=== PATIENT | female | born 1925 | race Caucasian/White ===

== ENCOUNTER 2016-10-15 14:00 | Emergency (ER) | payer MEDICARE, MEDICAID ==
[~2016-10-15] VITALS: Ht 152.4 cm; Wt 77.1 kg
[~2016-10-15 14:00] MED LIST: ACET-73 PO; ASPI-807 PO; CHOL10002 PO; DILT240C88 PO; DOCU-25 PO; ESOM40CA PO; HYDR-4076 PO; MULT-24 PO; POTA10TA10 PO; VALS80TA2 PO
[2016-10-15] MEDS ORDERED: ACETAMINOPHEN ES 500 MG TABLET PO ONE (14:30)
[2016-10-15] MEDS ORDERED: ACETAMINOPHEN ES 500 MG TABLET ONE (15:01)
[2016-10-15 16:01] VITALS: BP 108/68
== END 2016-10-15 16:01 | disposition home or self-care (01) ==
LOC: ER 14:04
DX: S52.502A Unspecified fracture of the lower end of left radius, initial encounter for closed fracture (principal); S52.602A Unspecified fracture of lower end of left ulna, initial encounter for closed fracture; I11.0 Hypertensive heart disease with heart failure; I50.9 Heart failure, unspecified; K21.9 Gastro-esophageal reflux disease without esophagitis; I27.2 Other secondary pulmonary hypertension; M19.90 Unspecified osteoarthritis, unspecified site; Z79.82 Long term (current) use of aspirin; Z87.19 Personal history of other diseases of the digestive system; Z86.73 Personal history of transient ischemic attack (TIA), and cerebral infarction without residual deficits; W18.39XA Other fall on same level, initial encounter; Y93.89 Activity, other specified; Y92.89 Other specified places as the place of occurrence of the external cause; Y99.9 Unspecified external cause status
CPT/HCPCS: 29125; 73090; 73120; 99284; A4606; Z7610

== ENCOUNTER 2016-10-17 09:40 | Outpatient (CLI) | payer MEDICARE, MEDICAID | END 2016-10-17 23:59 | disposition home health service (06) | LOC: WOU 09:40 | PROVIDERS: ATTEND Podiatrist Foot & Ankle Surgery | DX: I83.013 Varicose veins of right lower extremity with ulcer of ankle (principal); L97.311 Non-pressure chronic ulcer of right ankle limited to breakdown of skin; M20.41 Other hammer toe(s) (acquired), right foot; G30.9 Alzheimer's disease, unspecified; F02.80 Dementia in other diseases classified elsewhere, unspecified severity, without behavioral disturbance, psychotic disturbance, mood disturbance, and anxiety; Z96.641 Presence of right artificial hip joint; I11.0 Hypertensive heart disease with heart failure; I50.9 Heart failure, unspecified; Z79.899 Other long term (current) drug therapy; Z79.82 Long term (current) use of aspirin; I83.893 Varicose veins of bilateral lower extremities with other complications; S91.114A Laceration without foreign body of right lesser toe(s) without damage to nail, initial encounter; X58.XXXA Exposure to other specified factors, initial encounter; Y92.89 Other specified places as the place of occurrence of the external cause | CPT/HCPCS: 11042; A6209; A6253; A6402; A6452 ==

== ENCOUNTER 2016-10-21 10:15 | Outpatient (CLI) | payer MEDICARE, MEDICAID | END 2016-10-21 23:59 | disposition home or self-care (01) | LOC: RAD 10:15 | PROVIDERS: ATTEND Podiatrist Foot & Ankle Surgery | DX: M19.071 Primary osteoarthritis, right ankle and foot (principal); R60.0 Localized edema; M85.871 Other specified disorders of bone density and structure, right ankle and foot; L97.519 Non-pressure chronic ulcer of other part of right foot with unspecified severity | CPT/HCPCS: 73600-TC; 73630-TC ==

== ENCOUNTER 2016-10-21 11:00 | Outpatient (CLI) | payer MEDICARE, MEDICAID | END 2016-10-21 23:59 | disposition home health service (06) | LOC: WOU 11:00 | PROVIDERS: ATTEND Podiatrist Foot & Ankle Surgery | DX: I83.013 Varicose veins of right lower extremity with ulcer of ankle (principal); L97.311 Non-pressure chronic ulcer of right ankle limited to breakdown of skin; S91.114D Laceration without foreign body of right lesser toe(s) without damage to nail, subsequent encounter; X58.XXXD Exposure to other specified factors, subsequent encounter; I83.893 Varicose veins of bilateral lower extremities with other complications; Z86.73 Personal history of transient ischemic attack (TIA), and cerebral infarction without residual deficits; G30.9 Alzheimer's disease, unspecified; F02.80 Dementia in other diseases classified elsewhere, unspecified severity, without behavioral disturbance, psychotic disturbance, mood disturbance, and anxiety; I11.0 Hypertensive heart disease with heart failure; I50.9 Heart failure, unspecified; Z79.899 Other long term (current) drug therapy; Z79.82 Long term (current) use of aspirin; Z96.641 Presence of right artificial hip joint; M20.41 Other hammer toe(s) (acquired), right foot; M21.611 Bunion of right foot | CPT/HCPCS: 11042; A6209; A6402 ×2; A6452 ==

== ENCOUNTER 2016-10-28 09:06 | Outpatient (CLI) | payer MEDICARE, MEDICAID | END 2016-10-28 23:59 | disposition home health service (06) | LOC: WOU 09:06 | PROVIDERS: ATTEND Podiatrist Foot & Ankle Surgery | DX: I83.013 Varicose veins of right lower extremity with ulcer of ankle (principal); L97.311 Non-pressure chronic ulcer of right ankle limited to breakdown of skin; I83.893 Varicose veins of bilateral lower extremities with other complications; M20.41 Other hammer toe(s) (acquired), right foot; S91.114A Laceration without foreign body of right lesser toe(s) without damage to nail, initial encounter; L03.031 Cellulitis of right toe; X58.XXXA Exposure to other specified factors, initial encounter; Y92.89 Other specified places as the place of occurrence of the external cause; G30.9 Alzheimer's disease, unspecified; F02.80 Dementia in other diseases classified elsewhere, unspecified severity, without behavioral disturbance, psychotic disturbance, mood disturbance, and anxiety; Z86.73 Personal history of transient ischemic attack (TIA), and cerebral infarction without residual deficits; Z96.641 Presence of right artificial hip joint; Z91.81 History of falling; I10 Essential (primary) hypertension; M21.611 Bunion of right foot | CPT/HCPCS: 11042; 87070; 87075; 87077; A6402 ×2; A6452 ==

== ENCOUNTER 2016-11-04 13:15 | Outpatient (CLI) | payer MEDICARE, MEDICAID | END 2016-11-04 23:59 | disposition home health service (06) | LOC: WOU 13:15 | PROVIDERS: ATTEND Podiatrist Foot & Ankle Surgery | DX: I83.013 Varicose veins of right lower extremity with ulcer of ankle (principal); L97.311 Non-pressure chronic ulcer of right ankle limited to breakdown of skin; I83.893 Varicose veins of bilateral lower extremities with other complications; S91.114D Laceration without foreign body of right lesser toe(s) without damage to nail, subsequent encounter; L03.031 Cellulitis of right toe; X58.XXXD Exposure to other specified factors, subsequent encounter; G30.9 Alzheimer's disease, unspecified; F02.80 Dementia in other diseases classified elsewhere, unspecified severity, without behavioral disturbance, psychotic disturbance, mood disturbance, and anxiety; Z86.73 Personal history of transient ischemic attack (TIA), and cerebral infarction without residual deficits | CPT/HCPCS: 11042; A6402; A6452 ==

== ENCOUNTER 2016-11-18 11:08 | Outpatient (CLI) | payer MEDICARE, MEDICAID | END 2016-11-18 23:59 | disposition home health service (06) | LOC: WOU 11:08 | PROVIDERS: ATTEND Podiatrist Foot & Ankle Surgery | PROC: 0JBQ0ZZ Excision of Right Foot Subcutaneous Tissue and Fascia, Open Approach (ICD-10-PCS; principal; 2016-11-18) | DX: S91.114A Laceration without foreign body of right lesser toe(s) without damage to nail, initial encounter (principal); X58.XXXA Exposure to other specified factors, initial encounter; Y92.89 Other specified places as the place of occurrence of the external cause; I96 Gangrene, not elsewhere classified; M20.41 Other hammer toe(s) (acquired), right foot; M20.5X1 Other deformities of toe(s) (acquired), right foot; G30.9 Alzheimer's disease, unspecified; F02.80 Dementia in other diseases classified elsewhere, unspecified severity, without behavioral disturbance, psychotic disturbance, mood disturbance, and anxiety; Z86.73 Personal history of transient ischemic attack (TIA), and cerebral infarction without residual deficits; I83.892 Varicose veins of left lower extremity with other complications; Z96.641 Presence of right artificial hip joint; I11.0 Hypertensive heart disease with heart failure; I50.9 Heart failure, unspecified; Z79.899 Other long term (current) drug therapy | CPT/HCPCS: 11042; A6402; A6452 ==

== ENCOUNTER 2016-11-19 14:07 | Outpatient (CLI) | payer MEDICARE, MEDICAID ==
[2016-11-19 15:49] LABS: BASOPHILS % (AUTO) 0.1 % (0.0-2.0); DIFF TOTAL % 100 %; HEMATOCRIT 28 % (33-45); HEMOGLOBIN 8.9 g/dL (11.5-14.8); LYMPHOCYTES % (AUTO) 10.1 % (20.0-44.0); MEAN CORPUSCULAR HEMOGLOBIN 25 PG (26.0-33.0); MEAN CORPUSCULAR HGB CONC 32 g/dl (31.0-36.0); MEAN CORPUSCULAR VOLUME 78 fL (82-100); MONOCYTES # (AUTO) 1.2 /CMM (0.1-1.30); MONOCYTES % (AUTO) 11.5 % (2.0-12.0); NEUTROPHILS % (AUTO) 78.3 % (43.0-81.0); PLATELET COUNT (AUTO) 166 /CMM (150-450); RED BLOOD CELL COUNT(AUTO) 3.56 MIL/uL (4.0-5.2); WHITE BLOOD COUNT (AUTO) 10.3 K/uL (4.3-11.0)
[2016-11-19 15:58] LABS: KETONES,URINE NEGATIVE (NEGATIVE); LEUKOCYTE ESTERASE ,URINE TRACE (NEGATIVE)
[2016-11-19 16:00] LABS: ADD UA MICROSCOPIC YES
[2016-11-19 16:02] LABS: CALCIUM, SERUM 8.9 mg/dL (8.5-10.1); CREATININE 0.9 mg/dL (0.6-1.3); POTASSIUM 3.3 mmol/L (3.5-5.1)
[2016-11-19 16:09] LABS: ALBUMIN 3.3 g/dL (3.4-5.0); BILIRUBIN,TOTAL 0.5 mg/dL (0.2-1.0); TOTAL PROTEIN, SERUM 7.8 g/dL (6.4-8.2)
[2016-11-19 16:13] LABS: ADD URINE CULTURE YES; RBC,URINE 0-2 /HPF (0-2)
== END 2016-11-19 23:59 | disposition home or self-care (01) ==
LOC: LAB 14:07
PROVIDERS: ATTEND Internal Medicine Interventional Cardiology
DX: N39.0 Urinary tract infection, site not specified (principal); R53.83 Other fatigue
CPT/HCPCS: 36415; 80053-TC; 81000-TC; 85025-TC; 87086-TC

== ENCOUNTER 2016-12-01 14:13 | Inpatient (IN) | payer MEDICARE, MEDICAID ==
[2016-12-01] VITALS (7 sets, daily range): BP systolic 135–171; BP diastolic 62–103
[~2016-12-01] VITALS: Ht 152.4 cm; Wt 82.1 kg
--- NOTE | 2016-12-01 14:35 | NUR ---
MD MERCADO AT BEDSIDE FOR EVALUATION.
--- NOTE | 2016-12-01 14:36 | NUR ---
PATIENT WAS BIB DTRS TO ED DUE TO NAUSEA AND VOMITTING SINCE LAST NIGHT. PATIENT IS AAO3, APPEARS IN NO ACUTE DISTRESS, RESPIRATION EVEN AND UNLABORED, SKIN IS WARM TO TOUCH AND NON DIAPHORETIC. AFEBRILE. VSS. PATIENT NOTED PARRIS SPLINT. BLE ARE NOTED EDEMATOUS. PER DTRS, PT'S LASIX WAS HELD BY PMD LUCIA. WILL CONT TO MONITOR.
[2016-12-01] MEDS ORDERED: IV NS 0.9% 500 ML IV ONE (14:38)
--- NOTE | 2016-12-01 14:51 | NUR ---
iv access #20 blood sample collected sent to lab.
[2016-12-01 14:59] LABS: BASOPHILS % (AUTO) 0.2 % (0.0-2.0); HEMATOCRIT 25 % (33-45); HEMOGLOBIN 7.8 g/dL (11.5-14.8); LYMPHOCYTES # (AUTO) 1.1 /CMM (0.8-4.8); LYMPHOCYTES % (AUTO) 10.6 % (20.0-44.0); MEAN CORPUSCULAR HEMOGLOBIN 24 PG (26.0-33.0); MEAN CORPUSCULAR HGB CONC 32 g/dl (31.0-36.0); MEAN CORPUSCULAR VOLUME 76 fL (82-100); MONOCYTES # (AUTO) 0.7 /CMM (0.1-1.30); MONOCYTES % (AUTO) 7.4 % (2.0-12.0); NEUTROPHILS # (AUTO) 8.2 /CMM (1.8-8.9); NEUTROPHILS % (AUTO) 81.8 % (43.0-81.0); PLATELET COUNT (AUTO) 460 /CMM (150-450); RDW COEFFICIENT OF VARIATION 16.1 (11.5-15.0); RED BLOOD CELL COUNT(AUTO) 3.24 MIL/uL (4.0-5.2)
[2016-12-01] MEDS ORDERED: ONDANSETRON HCL/PF 4 MG/2 ML VIAL ONE (14:59)
[2016-12-01] MEDS ORDERED: IV NS 0.9% 500 ML BAG IV ONE (15:00)
[2016-12-01] MEDS ORDERED: ONDANSETRON HCL/PF 4 MG/2 ML VIAL IVP ONE (15:00)
[2016-12-01 15:10] LABS: CREATININE 0.6 mg/dL (0.6-1.3); POTASSIUM 3.9 mmol/L (3.5-5.1)
[2016-12-01 15:16] LABS: BILIRUBIN,DIRECT 0.1 mg/dL (0.0-0.2); BILIRUBIN,TOTAL 0.4 mg/dL (0.2-1.0); TOTAL PROTEIN, SERUM 7.2 g/dL (6.4-8.2)
[2016-12-01 15:18] LABS: INR 1.15 (0.87-1.13); PROTHROMBIN TIME 12.4 SECS (9.5-12.7); TROPONIN I 0.02 ng/mL (0.00-0.056)
[2016-12-01 15:23] LABS: BAND % (MANUAL) 1 % (0.0-5.0); LYMPHOCYTES % (MANUAL) 7 % (16-48); MONOCYTES % (MANUAL) 5 % (0-11.0); NEUTROPHILS % (MANUAL) 85 (42-76); REACTIVE LYMPHOCYTES 2 % (0-0)
[2016-12-01 15:24] LABS: ANISOCYTOSIS 1+; PLATELET ESTIMATE INCRE; ROULEAUX 1+
[2016-12-01 15:25] LABS: OVALOCYTES RARE
[2016-12-01 15:42] LABS: LACTIC ACID 0.7 mmol/L (0.4-2.0)
[2016-12-01] MEDS ORDERED: FURO-144 PO (15:49)
[2016-12-01 15:50] LABS: APPEARANCE,URINE CLEAR (CLEAR); BILIRUBIN,URINE NEGATIVE (NEGATIVE); BLOOD, URINE NEGATIVE Ery/uL (NEGATIVE); COLOR,URINE YELLOW (YELLOW); KETONES,URINE NEGATIVE (NEGATIVE); LEUKOCYTE ESTERASE ,URINE NEGATIVE (NEGATIVE); NITRITE, URINE POSITIVE (NEGATIVE); PROTEIN,URINE TRACE mg/dl (NEGATIVE); UGLUCOSE NEGATIVE (NEGATIVE); UROBILINOGEN,URINE 0.2 EU/dL (0.2)
[2016-12-01 15:57] LABS: ADD URINE CULTURE YES; BACTERIA,URINE 4+ /HPF (None Seen); RBC,URINE 0-2 /HPF (0-2); SQUAMOUS EPITHELIAL CELL,UR 0-2 /HPF (None Seen); WBC,URINE 0-2 /HPF (0-3)
--- NOTE | 2016-12-01 16:06 | NUR ---
Patient on bed. awake. vss
[2016-12-01] MEDS ORDERED: ONDANSETRON HCL/PF 4 MG/2 ML VIAL IVP PRN (16:30)
[2016-12-01] MEDS ORDERED: MAGNESIUM HYDROXIDE 30 ML UDC PO PRN ×2 (16:30→16:45)
[2016-12-01] MEDS ORDERED: HYDROCODONE/APAP 5/325MG 1 EACH TABLET PO PRN ×2 (16:30→16:45)
[2016-12-01] MEDS ORDERED: CEFTRIAXONE 1 G in IV D5W 50 ML IV SCH ×2 (16:30→17:00)
[2016-12-01] MEDS ORDERED: ZOLPIDEM TARTRATE 5 MG TABLET PO PRN ×2 (16:30→16:45)
[2016-12-01] MEDS ORDERED: ACETAMINOPHEN 325 MG TABLET PO PRN ×2 (16:30→16:45)
[2016-12-01] MEDS ORDERED: MAG HYDROX/AL HYDROX/SIMETH 30 ML UDC PO PRN ×2 (16:30→16:45)
[2016-12-01] MEDS ORDERED: Z GUARD REMEDY 2 OZ OINT TP PRN ×2 (16:30→16:45)
--- NOTE | 2016-12-01 16:30 | NUR ---
PATIENT TRANSPORTED TO 3W,. VSS
--- NOTE | 2016-12-01 16:30 | NUR ---
REPORT GIVEN TO NURSE DUGAN FOR WINSOME.
--- NOTE | 2016-12-01 16:32 | NUR ---
RITCHIE BOWLING VERBALIZED AWARE OF BLOOD TRANSFUSION ORDER
--- NOTE | 2016-12-01 16:56 | NUR ---
PT TRANSPORTED TO 308 IN STABLE CONDITION VIA ACLS PROTOCOL
[2016-12-01] MEDS: hydrALAZINE HCL 25 MG TABLET PO SCH ×2 (17:00→17:46)
[2016-12-01] MEDS ORDERED: FUROSEMIDE 40 MG TABLET PO SCH (17:00)
[2016-12-01] MEDS ORDERED: hydrALAZINE HCL 25 MG TABLET PO SCH (17:00)
[2016-12-01] MEDS: FUROSEMIDE 40 MG TABLET PO SCH ×2 (17:00→17:47)
--- NOTE | 2016-12-01 17:25 | NUR ---
RN OPEN NOTES / ADMISSION PATIENT ARRIVED TO THE UNIT. 2 DAUGHTERS AND SON IN LAW ARE WITH PATIENT. IV SITE IS POTENT AND INTACT. BLOOD PRESSURE IS 135/62 hr 80, OXYGEN 94% ON ROOM AIR.
[2016-12-01] MEDS ORDERED: IV NS 0.9% 250 ML IV ONE (17:27)
[2016-12-01] MEDS ORDERED: SECONDARY IV SET 1 EA INFUS.SET MC ONE (17:27)
[2016-12-01] MEDS ORDERED: IV SET PRIMARY PUMP SET 1 EA INFUS.SET MC ONE (17:27)
[2016-12-01] MEDS: DOCUSATE SODIUM 100 MG CAPSULE PO SCH (17:45)
[2016-12-01] MEDS: DILTIAZEM HCL CD 240 MG PO SCH ×2 (17:45→17:57)
[2016-12-01] MEDS: VALSARTAN 80 MG TABLET PO SCH ×2 (17:46→17:57)
--- NOTE | 2016-12-01 17:57 | NUR ---
RN NOTES PATIENT COUNT NOT TAKE HER 1700 AND 1800 MEDS DUE TO NAUSEA AND VOMITING. MEDS WASTED
[2016-12-01] MEDS ORDERED: VALSARTAN 80 MG TABLET PO SCH (18:00)
[2016-12-01] MEDS ORDERED: DILTIAZEM HCL CD 240 MG PO SCH (18:00)
[2016-12-01] MEDS ORDERED: DOCUSATE SODIUM 100 MG CAPSULE PO SCH (18:00)
--- NOTE | 2016-12-01 20:00 | NUR ---
ms/rn opening notes RECEIVED PATIENT IN BED. ALERT, ORIENTED X3. ABLE TO VERBALIZE NEEDS.NO S/S OF SOB OR DISTRESS.RECEIVED ENDORSEMENT FROM AM RN REGARDING WINSOME. FAMILY WAS AT BEDSIDE. INFORMED CONSENT SIGNED FOR BLOOD TRANSFUSION DUE TO HGB LEVEL AT 7.8. WILL MONITOR AND PROVIDE CARE.
[2016-12-01] MEDS ORDERED: BLOOD IV SET 1 EA INFUS.SET MC ONE (20:22)
[2016-12-01] MEDS ORDERED: ONDANSETRON HCL/PF 4 MG/2 ML VIAL IV PRN (22:00)
[2016-12-01] MEDS ORDERED: ENOXAPARIN SODIUM 30 MG/0.3 ML DISP.SYRIN SQ SCH (22:00)
[2016-12-01] MEDS ORDERED: PANTOPRAZOLE 40 MG VIAL IV SCH (22:00)
[2016-12-02] MEDS ORDERED: ENOXAPARIN SODIUM 30 MG/0.3 ML DISP.SYRIN ONE (01:25)
[2016-12-02] MEDS ORDERED: PANTOPRAZOLE 40 MG VIAL ONE (01:25)
[2016-12-02 02:00] VITALS: BP 160/100
[2016-12-02 02:56] LABS: BASOPHILS % (AUTO) 0.1 % (0.0-2.0); HEMATOCRIT 28 % (33-45); LYMPHOCYTES # (AUTO) 1.4 /CMM (0.8-4.8); LYMPHOCYTES % (AUTO) 10.4 % (20.0-44.0); MEAN CORPUSCULAR HEMOGLOBIN 25 PG (26.0-33.0); MEAN CORPUSCULAR HGB CONC 32 g/dl (31.0-36.0); MEAN CORPUSCULAR VOLUME 78 fL (82-100); MONOCYTES # (AUTO) 0.6 /CMM (0.1-1.30); MONOCYTES % (AUTO) 4.7 % (2.0-12.0); NEUTROPHILS # (AUTO) 11.4 /CMM (1.8-8.9); NEUTROPHILS % (AUTO) 84.8 % (43.0-81.0); PLATELET COUNT (AUTO) 493 /CMM (150-450); RDW COEFFICIENT OF VARIATION 17.3 (11.5-15.0); RED BLOOD CELL COUNT(AUTO) 3.61 MIL/uL (4.0-5.2); WHITE BLOOD COUNT (AUTO) 13.4 K/uL (4.3-11.0)
--- NOTE | 2016-12-02 03:37 | NUR ---
MS/RN NOTES HGB LEVEL AFTER I UNIT PRBC GIVEN, RECHECK WITH RESULT HGB AT 9.0L. ON ESBL CONTACT ISOLATION GIVEN PROTONIX AND LOVENOX MD ORDER.ABLE TO URINATE IN BEDSIDE COMMODE W/ NO BLEEDING. WILL CONTINUE TO MONITOR. VITAL SIGNS IN STABLE.
--- NOTE | 2016-12-02 06:16 | NUR ---
MS/RN CLOSING NOTES PATIENT IN HOB ELEVATED. ABLE TO SLEEP BUT EASILY AROUSES. PROVIDED CARE AT ALL TIMES. NO S/S OF SOB OR DISTRESS. ON OXYGEN 2 LITER DURING THE NIGHT FOR COMFORT MEASURES.PATIENT MONITORING FOR N/V AND NOTED SOME SPUTUM AFTER COUGH.BUT RESTING AT THIS TIME. WILL ENDORSE TO AM RN FOR WINSOME.
--- NOTE | 2016-12-02 07:15 | NUR ---
RN INITIAL NOTES RECEIVED PATIENT IN BED, AWAKE, A/O X3. ON OXYGEN AT 2L/MIN VIA NC, NO SOB NOTED. LFA CAST INTACT, NO C/O PAIN AT THIS TIME. WILL CONT TO MONITOR. CALL LIGHT WITHIN REACH. BED LOW AND LOCKED. SIDE RAILS UP X2.
[2016-12-02] MEDS ORDERED: PANTOPRAZOLE 40 MG TABLET.DR PO SCH ×2 (07:30)
[2016-12-02 08:00] VITALS: BP 165/93
[2016-12-02] MEDS: hydrALAZINE HCL 25 MG TABLET PO SCH ×2 (08:28→17:15)
[2016-12-02] MEDS: ONDANSETRON HCL/PF 4 MG/2 ML VIAL IVP PRN ×2 (08:38→16:42)
--- NOTE | 2016-12-02 08:48 | NUR ---
PATIENT C/O NAUSEA WHILE EATING HER BREAKFAST, GIVEN ZOFRAN 4MG IV PRN. WILL CONT TO MONITOR.
[2016-12-02] MEDS ORDERED: CHOLECALCIFEROL 1,000 UNIT TABLET (VIT D3) PO SCH ×2 (09:00)
[2016-12-02] MEDS ORDERED: POTASSIUM CHLORIDE 10 MEQ TABLET.SA PO SCH ×2 (09:00)
[2016-12-02] MEDS ORDERED: MULTIVITAMINS,THERAPEUTIC 1 UDTAB TABLET PO SCH ×2 (09:00)
[2016-12-02] MEDS ORDERED: ASPIRIN EC 81 MG TABLET.DR PO SCH ×2 (09:00)
--- NOTE | 2016-12-02 09:15 | NUR ---
RECEIVED CALL FROM DERICK CHARLES MD PATIENT IS UNDER HIS CARE AND HE WILL COME TO SEE THE PATIENT TODAY. INFORMED DR. RAINES.
--- NOTE | 2016-12-02 10:07 | NUR ---
PATIENT IS SEEN BY PT TODAY, PATIENT PARTICIPATED WELL. PER PT PATIENT AMBULATES WITH ASSIST 20 FEET WITH NO C/O PAIN.
[2016-12-02] MEDS ORDERED: PANT40TA2 PO (10:59)
--- NOTE | 2016-12-02 10:59 | NUR ---
PATIENT IS SEEN BY DR. VALENZUELA TODAY, PATIENT TO BE DISCHARGED HOME ORDERED.
[2016-12-02] MEDS ORDERED: HYDROGEL DRESSING 90 GM TUBE TP SCH (11:00)
--- NOTE | 2016-12-02 11:00 | NUR ---
PATIENT IS SEEN BY TREATMENT RN TODAY.
--- NOTE | 2016-12-02 11:00 | NUR ---
WOUND CARE CONSULT: PATIENT SEEN AND SKIN ASSESSMENT DONE. PATIENT ALERT, ORIENTED, AMBULATORY WITH ASSIST, INDEPENDENT WITH BED MOBILITY, CONTINENT, [address] 17. PRIVATE CAREGIVER AT THE BEDSIDE. SEE TODAY'S SKIN ASSESSMENT IN PCS ALONG WITH RECOMMENDATIONS DISCUSSED WITH NURSING STAFF. MD IN AGREEMENT WITH PLAN OF CARE. Addendum: 12/02/16 at 1102 by ASHWINI MCCULLOUGH WNDNU Amended: Links added.
[2016-12-02] MEDS ORDERED: FERR-58 PO (11:01)
--- NOTE | 2016-12-02 11:29 | NUR ---
PER DAUGHTER-JUSTIN, PATIENT RECEIVED PNA VACCINE 2014 AND FLU VACCINE LAST 2015. VACCINATIONS STATUS UPDATED.
--- NOTE | 2016-12-02 12:32 | NUR ---
HYDROGEL NOT AVAILABLE, CALLED PHARMACY 2X. WILL F/U.
--- NOTE | 2016-12-02 13:51 | NUR ---
HYDROGEL ADMINISTERED LATE, MEDICATION AVAILABLE NOT ON TIME.
[2016-12-02 16:00] VITALS: BP 157/76
--- NOTE | 2016-12-02 16:48 | NUR ---
PATIENT WITH EPISODE OF VOMITING, FOOD RESIDUE CREAM COLORED, C/O NAUSEA. GIVEN ZOFRAN 4MG IV PRN, WILL RE ASSESS.
[2016-12-02] MEDS: DOCUSATE SODIUM 100 MG CAPSULE PO SCH (17:15)
[2016-12-02] MEDS: DILTIAZEM HCL CD 240 MG PO SCH (17:15)
[2016-12-02 17:16] VITALS: BP 157/76
[2016-12-02] MEDS: VALSARTAN 80 MG TABLET PO SCH (17:16)
--- NOTE | 2016-12-02 18:31 | NUR ---
MS RN DISCHARGED PATIENT HAS BEEN CLEARED FOR DISCHARGE HOME BY . V/S REMAINS STABLE, NO C/O NAUSEA, NO VOMITING. ZOFRAN 4MG IV PRN EFFECTIVE. DRESSING CHANGED IN RIGHT 5TH TOE AND RIGHT LOWER LEG. IV IN RIGHT AC REMOVED, GAUZE APPLIED, NO BLEEDING NOTED. DISCHARGE INSTRUCTION GIVEN TO DAUGHTER-JUSTIN, VERBALIZED UNDERSTAND. BELONGINGS AND PRESCRIPTION SEND WITH THE PATIENT UPON DISCHARGE. PATIENT LEFT HOSP IN STABLE CONDITION VIA PRIVATE CAR ACCOMPANIED BY DAUGHTER-JUSTIN.
== END 2016-12-02 18:30 | disposition home or self-care (01) | DRG 392 ==
LOC: ER 14:15 → TELE 16:49 → MED 16:55
PROVIDERS: ADMIT Student in an Organized Health Care Education/Training Program; ATTEND Student in an Organized Health Care Education/Training Program
PROC: 30233N1 Transfusion of Nonautologous Red Blood Cells into Peripheral Vein, Percutaneous Approach (ICD-10-PCS; principal; 2016-12-01)
DX: K29.70 Gastritis, unspecified, without bleeding (principal); I50.32 Chronic diastolic (congestive) heart failure; E86.0 Dehydration; K21.9 Gastro-esophageal reflux disease without esophagitis; I27.2 Other secondary pulmonary hypertension; Z86.73 Personal history of transient ischemic attack (TIA), and cerebral infarction without residual deficits; Z87.891 Personal history of nicotine dependence; D50.9 Iron deficiency anemia, unspecified; N93.9 Abnormal uterine and vaginal bleeding, unspecified; E78.5 Hyperlipidemia, unspecified; E11.9 Type 2 diabetes mellitus without complications; I48.91 Unspecified atrial fibrillation; Z85.41 Personal history of malignant neoplasm of cervix uteri; Z96.649 Presence of unspecified artificial hip joint; I11.0 Hypertensive heart disease with heart failure
CPT/HCPCS: 36415; 71010-TC; 80048-TC; 80076-TC; 81000-TC; 82150-TC; 83605-TC; 83690-TC; 84484-TC; 85025-TC; 85730-TC; 86850-TC; 86921-TC; 87040-TC; 87081-TC; 87086-TC; 87186-TC; 94799-TC; 97001-TC; 97003-TC; A4606; A6248; C9113; J0696; J1650; J2405; J7040; J7050; J7060; P9016-BL; Z7610

== ENCOUNTER 2016-12-19 10:28 | Outpatient (CLI) | payer MEDICARE, MEDICAID ==
[~2016-12-19 10:28] MED LIST changes: -ACET-73 PO; +FERR-58 PO; +FURO-144 PO; +PANT40TA2 PO
== END 2016-12-19 23:59 | disposition home health service (06) ==
LOC: WOU 10:28
PROVIDERS: ATTEND Podiatrist Foot & Ankle Surgery
DX: S91.114A Laceration without foreign body of right lesser toe(s) without damage to nail, initial encounter (principal); L03.031 Cellulitis of right toe; X58.XXXA Exposure to other specified factors, initial encounter; Y92.89 Other specified places as the place of occurrence of the external cause; M20.41 Other hammer toe(s) (acquired), right foot; I83.891 Varicose veins of right lower extremity with other complications; G30.9 Alzheimer's disease, unspecified; F02.80 Dementia in other diseases classified elsewhere, unspecified severity, without behavioral disturbance, psychotic disturbance, mood disturbance, and anxiety; I11.9 Hypertensive heart disease without heart failure; M21.611 Bunion of right foot
CPT/HCPCS: 11043; A6402

== ENCOUNTER 2017-01-02 13:07 | Outpatient (CLI) | payer MEDICARE, MEDICAID | END 2017-01-02 23:59 | disposition home health service (06) | LOC: WOU 13:07 | PROVIDERS: ATTEND Podiatrist Foot & Ankle Surgery | DX: S91.114A Laceration without foreign body of right lesser toe(s) without damage to nail, initial encounter (principal); X58.XXXA Exposure to other specified factors, initial encounter; Y92.89 Other specified places as the place of occurrence of the external cause; M20.11 Hallux valgus (acquired), right foot; M20.41 Other hammer toe(s) (acquired), right foot; Z99.3 Dependence on wheelchair; Z96.641 Presence of right artificial hip joint; G30.9 Alzheimer's disease, unspecified; F02.80 Dementia in other diseases classified elsewhere, unspecified severity, without behavioral disturbance, psychotic disturbance, mood disturbance, and anxiety; Z91.81 History of falling; I11.0 Hypertensive heart disease with heart failure; I50.9 Heart failure, unspecified; Z86.73 Personal history of transient ischemic attack (TIA), and cerebral infarction without residual deficits; Z79.899 Other long term (current) drug therapy | CPT/HCPCS: 15275; A6402; Q4131 ×2 ==

== ENCOUNTER 2017-01-13 12:59 | Outpatient (CLI) | payer MEDICARE, MEDICAID | END 2017-01-13 23:59 | disposition home health service (06) | LOC: WOU 12:59 | PROVIDERS: ATTEND Podiatrist Foot & Ankle Surgery | DX: S91.114A Laceration without foreign body of right lesser toe(s) without damage to nail, initial encounter (principal); X58.XXXA Exposure to other specified factors, initial encounter; Y92.89 Other specified places as the place of occurrence of the external cause; I83.892 Varicose veins of left lower extremity with other complications; M21.611 Bunion of right foot; M20.41 Other hammer toe(s) (acquired), right foot; G30.9 Alzheimer's disease, unspecified; F02.80 Dementia in other diseases classified elsewhere, unspecified severity, without behavioral disturbance, psychotic disturbance, mood disturbance, and anxiety; Z86.73 Personal history of transient ischemic attack (TIA), and cerebral infarction without residual deficits; I11.0 Hypertensive heart disease with heart failure; I50.9 Heart failure, unspecified; Z79.899 Other long term (current) drug therapy | CPT/HCPCS: 15275; A6402; Q4131 ==